=== PATIENT | female | born 1990 ===

== ENCOUNTER 2019-01-21 17:20 | Emergency (ER) | payer OTHER ==
[2019-01-21 17:54] VITALS: BP 119/55
--- NOTE | 2019-01-21 18:23 | UC ---
Throat Pain/Nasal Vignesh HPI - HPI Summary HPI Summary: 28-year-old woman who is 30 weeks coming in with chief complaint of respiratory tract infection for 3 days. She's had some rhinorrhea she's had chest congestion. Also reports some wheezing. Does have a history of asthma has use an albuterol inhaler and a long time it does not have an albuterol inhaler. She reports yellow sputum production. Has not tried any over-the- counter medications. She is 30 weeks and does feel the baby moving normally. - History of Current Complaint Chief Complaint: UCGeneralIllness Stated Complaint: ECHEVARRIA,COUGH,CONGESTION Time Seen by Provider: 01/21/19 17:54 Pain Intensity: 5 - Allergies/Home Medications Allergies/Adverse Reactions: Allergies Allergy/AdvReac Type Severity Reaction Status Date / Time clindamycin Allergy Rash Verified 01/21/19 17:50 Home Medications: Home Medications Iron 1 dose PO DAILY 01/21/19 [History Confirmed 01/21/19] Mv-Mn/Iron/FA/Herbal/Digestive [ One Tablet] 1 each PO DAILY 01/21/19 [ History Confirmed 01/21/19] PMH/Surg Hx/FS Hx/Imm Hx Previously Healthy: Yes Respiratory History: Asthma - Surgical History Surgical History: None - Family History Known Family History: Positive: Non-Contributory - Social History Alcohol Use: None Substance Use Type: None Smoking Status (MU): Former Smoker Review of Systems All Other Systems Reviewed And Are Negative: Yes Constitutional: Positive: Negative Skin: Positive: Negative Eyes: Positive: Negative ENT: Positive: Nasal Discharge, Sinus Congestion Respiratory: Positive: Cough, Other - SEE HPI Cardiovascular: Positive: Negative Gastrointestinal: Positive: Negative Motor: Positive: Negative Neurovascular: Positive: Negative Musculoskeletal: Positive: Negative Neurological: Positive: Negative Psychological: Positive: Negative Is Patient Immunocompromised?: No Physical Exam Triage Information Reviewed: Yes Appearance: Well-Appearing, No Pain Distress, Well-Nourished Vital Signs: Initial Vital Signs Temp 98.6 F 01/21/19 17:51 Pulse 95 01/21/19 17:51 Resp 16 01/21/19 17:51 BP 119/55 01/21/19 17:51 Pulse Ox 99 01/21/19 17:51 Vital Signs Reviewed: Yes Eye Exam: Normal Eyes: Positive: Conjunctiva Clear ENT: Positive: Pharyngeal erythema, Nasal congestion, Nasal drainage, TMs normal Neck: Positive: Supple Respiratory: Positive: No respiratory distress, Wheezing - MILD Cardiovascular: Positive: RRR Abdomen Description: Positive: Other: - GRAVID Musculoskeletal Exam: Normal Musculoskeletal: Positive: Strength Intact, ROM Intact Neurological: Positive: Alert, Muscle Tone Normal Psychological: Positive: Normal Response To Family, Age Appropriate Behavior Skin Exam: Normal Skin: Positive: Rashes Throat Pain/Nasal Course/Dx - Course Course Of Treatment: DISCUSSED VIRAL VERSES BACTERIAL INFECTION AND THE ROLE OF ANTIBIOTICS. THE PATIENT PREFERS TO BE ON ANTIBIOTICS AT THIS TIME. - Differential Dx/Diagnosis Provider Diagnosis: Upper respiratory infection, Bronchospasm Discharge - Sign-Out/Discharge Documenting (check all that apply): Patient Departure All imaging exams completed and their final reports reviewed: No Studies - Discharge Plan Condition: Stable Disposition: HOME Prescriptions: Albuterol HFA INHALER* [Ventolin HFA Inhaler*] 2 puff INH Q4H PRN #1 mdi PRN Reason: Wheezing Amoxicillin PO (*) [Amoxicillin 875 MG (*)] 875 mg PO BID #20 tab Patient Education Materials: Upper Respiratory Infection (ED), Bronchospasm (ED ) Forms: *Work Release Referrals: Bryant Norton MD [Primary Care Provider] - Additional Instructions: FOLLOW UP WITH YOUR DOCTOR IF NOT COMPLETELY IMPROVED. GET REEVALUATED SOONER IF WORSE OR ANY QUESTIONS OR CONCERNS. - Billing Disposition and Condition Condition: STABLE Disposition: Home
== END 2019-01-21 18:41 | disposition home or self-care (01) ==
LOC: UCCORT 17:20
DX: J06.9 Acute upper respiratory infection, unspecified (principal); O99.513 Diseases of the respiratory system complicating pregnancy, third trimester; J40 Bronchitis, not specified as acute or chronic; Z3A.30 30 weeks gestation of pregnancy; Z88.1 Allergy status to other antibiotic agents; Z87.891 Personal history of nicotine dependence
CPT/HCPCS: 99212; G0463